=== PATIENT | female | born 1935 ===

== ENCOUNTER 2016-07-23 10:34 | Inpatient (IN) ==
[~2016-07-23 10:34] MED LIST: ATROPINE 1 MG/1 ML VIAL IV ONE; BIVALIRUDIN 250 MG VIAL IV ONE; HEPARIN/NACL 0.9% 2 UNITS/ML 500 ML IV ONE; LIDOCAINE 1% 20 ML VIAL MISC INJ ONE; MIDAZOLAM 2 MG/2 ML VIAL IV ONE; ONDANSETRON 4 MG/2 ML VIAL IV ONE; SODIUM BICARBONATE 2.4 MEQ/5 ML VIAL IV ONE; TICAGRELOR 90 MG TABLET PO ONE; fentaNYL 100 MCG/2 ML VIAL IV ONE
[2016-07-23 10:54] LABS: Basophils # 0.1 10*3/uL (0.0-0.2); Basophils % 0.6 % (0.0-0.8); Eosinophils # 0.3 10*3/uL (0.0-0.87); Eosinophils % 1.2 % (0.00-10.9); Hematocrit 39.9 VOL% (35.7-47.0); Hemoglobin 13.7 GM/DL (12.0-16.0); Immature Granulocytes % 1.1 %; Immature Granulocytes Absolute 0.24 #; Lymphocytes # 3.8 10*3/uL (1.4-4.0); Lymphocytes % 17.4 % (21.3-54.2); Mean Corpuscular HGB Conc 34.3 GM/DL (32-36); Mean Corpuscular Hemoglobin 30 PG (27-34); Monocytes # 1.6 10*3/uL (0.11-0.8); Monocytes % 7.2 % (1.7-12.7); Neutrophils # 15.8 10*3/uL (1.4-7.4); Neutrophils % 72.5 % (38.7-73.9); Platelet Count 384 T/CUMM (130-400); Red Blood Count 4.64 MC/CUMM (3.8-5.5); White Blood Count 21.8 T/CUMM (4-12)
[2016-07-23 11:05] LABS: PT Patient Result 10.4 SECS; Partial Thromboplastin Time < 21.0 SECS (0-40)
[2016-07-23 11:12] LABS: Calcium 8.9 MG/DL (8.5-10.1); Magnesium 2.2 MG/DL (1.8-2.4); Osmolality,Calculated 285.4 MOS/KG (273-304); Potassium 3.3 MMOL/L (3.5-5.1)
[2016-07-23 11:15] LABS: Hypochromasia 1+; Lymphocytes 9 % (20-55); Platelet Estimate Adequate; Segmented Neutrophils 81 % (50-85); Total Cells Counted 100
[2016-07-23] MEDS ORDERED: NITROGLYCERIN SL 0.4 MG TABLET SL PRN (11:16)
[2016-07-23] MEDS ORDERED: ACETAMINOPHEN 325 MG TABLET PO PRN (11:16)
[2016-07-23] MEDS ORDERED: ACETAMINOPHEN/CODEINE 300-30 MG TABLET PO PRN (11:16)
[2016-07-23] MEDS ORDERED: MORPHINE 2 MG/1 ML SYRINGE IV PRN (11:16)
[2016-07-23 11:19] LABS: Troponin I Only 0.062 NG/ML (0.00-0.045)
[2016-07-23] MEDS ORDERED: DILTIAZEM 100 MG VIAL.ADD IV ONE (11:43)
[2016-07-23] MEDS: DILTIAZEM INJ 100 MG in SODIUM CHLORIDE 0.9% 100 ML IV SCH (11:57)
[2016-07-23] MEDS ORDERED: ONDANSETRON 4 MG/2 ML VIAL ONE (12:16)
[2016-07-23] MEDS: ONDANSETRON 4 MG/2 ML VIAL IV PRN (12:20)
--- NOTE | 2016-07-23 12:23 | Cardiology History & Physical ---
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 Oden is a 81 year old female without a prior cardiac history, with risk factors significant for hypertension. She was in her usual state of health until she was gardening today when she experienced acute onset of left-sided shoulder pain with extreme nausea and vomiting, as well as some diarrhea. She activated EMS who recognized that she was experiencing an acute ST elevation myocardial infarction. The [facility] was activated and she was brought emergently to our [facility] for emergent evaluation and treatment. She was still experiencing left shoulder pain upon arrival, mild dyspnea. She did have some associated nausea. She underwent emergent cardiac catheterization with percutaneous coronary intervention of the right coronary artery. Please see that report for full details. Intraoperatively she experienced ventricular arrhythmias with ventricular tachycardia requiring direct-current cardioversion. Thereafter she had some bradycardia arrhythmias (which she also had pre- intervention) which responded to atropine. She was also recognized as having mid LAD disease that was severe, but had developed significant nausea and vomiting on the table making it difficult to proceed with treatment. Before the acute events today, she had recently been treated with steroids, decongestants for sinus infection. She did have some nausea, vomiting and diarrhea. She had no other acute or chronic complaints. She denied any contraindication to dual antiplatelet therapy for 1 year including no history of GI bleeding, gait instability, upcoming surgeries. Impression and plan: 1. Acute inferior ST elevation myocardial infarction-she is now status post emergent revascularization. She will be treated with dual antiplatelet therapy , statin therapy. We will evaluate her heart rhythm to determine her candidacy for beta-blockers. Currently she has been somewhat hypotensive so these are not being started. 2. Hypertension-currently hypotensive as a complication of her [place]. 3. Ventricular tachycardia-this appeared to be a reperfusion arrhythmia and resolved after cardioversion. 4. Coronary artery disease-she also has severe mid LAD disease that should be addressed prior to discharge from the hospital. 5. Bradycardia arrhythmias-this was prior to revascularization. We will observe her rhythm at this point and manage it expectantly. Home Medications Medication Instructions Recorded Confirmed Type Albuterol Sulfate [Ventolin HFA] 2 puffs INH Q4HR PRN 07/23/16 07/23/16 History Fluticasone/Salmeterol 500-50 1 puff INH BID 07/23/16 07/23/16 History [Advair 500-50] RX: Levothyroxine Tab [Synthroid 88 mcg PO DAILY 07/23/16 07/23/16 History Tab] RX: Lisinopril 5 mg PO DAILY 07/23/16 07/23/16 History hydroCHLOROthiazide 25 mg PO DAILY 07/23/16 07/23/16 History [Hydrochlorothiazide] Allergies Allergy/AdvReac Type Severity Reaction Status Date / Time No Known Allergies Allergy Unverified 07/23/16 10:33 12 point system: reviewed and no additional remarkable complaints except as stated Medical,Surgical,& Family Hx - Medical History Cardio: History of: Hypertension - Social History Smoking Status: Never smoker Lives With:: Alone Functional capacity: independent ambulation Cardiology Physical Exam - Constitutional Vitals: Intake and Output 07/22/16 07/23/16 07/23/16 23:59 07:59 15:59 Other: Weight 61.235 kg Patient Weight 07/23/16 23:59 Weight 61.235 kg Exam: General appearance: normal weight, no acute distress - Head Head exam: Present: normal inspection, normocephalic, atraumatic. Absent: hematoma, laceration - Eye Eye exam: Present: EOMI. Absent: conjunctival injection, nystagmus, periorbital swelling, scleral icterus, laceration to eyelids Pupils: Present: PERRL. Absent: constricted, dilated, fixed, irregular, unequal - ENT ENT exam: Present: normal exam, normal external ear exam - Neck Neck exam: Present: normal inspection. Absent: lymphadenopathy, meningismus, tenderness, thyromegaly - Respiratory Respiratory exam: Present: clear to auscultation bilaterally. Absent: accessory muscle use, chest wall tenderness - Cardiovascular Cardiovascular exam: Present: regular rate and rhythm. Absent: carotid bruit, gallop, JVD, rubs - GI/Abdominal GI/Abdominal exam: Present: normal bowel sounds, soft. Absent: distended, firm , guarding, hernia, mass, tenderness, rebound. - Extremities Exam Extremities exam: Present: normal inspection, normal capillary refill. Absent: calf tenderness, edema - Back Exam Back exam: Present: normal inspection. Absent: muscle spasm, vertebral tenderness - Neurological Exam Neurological exam: Present: alert, oriented X3, grossly intact without resting or intention tremor - Psychiatric Psychiatric exam: Present: normal affect, normal mood - Skin Skin exam: Present: normal color, warm, dry, intact. Absent: cyanosis, diaphoretic, rash, urticaria Result/EKG - Labs CBC & BMP: 07/23/16 10:35 07/23/16 10:35 Lab Results: I have reviewed the past 24 hour labs Labs: Laboratory Results - last 24 hr 07/23/16 07/23/16 07/23/16 10:35 10:35 10:35 WBC 21.8 H RBC 4.64 Hgb 13.7 Hct 39.9 MCV 86.0 L MCH 30 MCHC 34.3 RDW 14.0 Plt Count 384 MPV 10.0 Neut % (Auto) 72.5 Lymph % (Auto) 17.4 L [place] % (Auto) 7.2 Eos % (Auto) 1.2 Baso % (Auto) 0.6 Neut # (Auto) 15.8 H Lymph # (Auto) 3.8 [place] # (Auto) 1.6 H Eos # (Auto) 0.3 Baso # (Auto) 0.1 Total Counted 100 Immature Gran % 1.1 Nucleated RBC % 0.0 Immature Gran # 0.24 Segmented Neutrophils 81 Lymphocytes 9 L Monocytes 10 Nucleated RBCs # 0.00 Platelet Estimate Adequate Hypochromasia 1+ Morphology Comment INR 1.0 PT Patient/Control Mix 10.4 Circ Anticoag PTT < 21.0 Sodium 140 Potassium 3.3 L Chloride 106 Carbon Dioxide 22 Anion Gap 15.3 H BUN 21 H Creatinine 1.10 H GFR Calculation 43 BUN/Creatinine Ratio 19.00 Glucose 163 H Calculated Osmolality 285.4 Calcium 8.9 Magnesium 2.2 Total Creatine Kinase CK-MB (CK-2) Troponin I 07/23/16 10:35 WBC RBC Hgb Hct MCV MCH MCHC RDW Plt Count MPV Neut % (Auto) Lymph % (Auto) [place] % (Auto) Eos % (Auto) Baso % (Auto) Neut # (Auto) Lymph # (Auto) [place] # (Auto) Eos # (Auto) Baso # (Auto) Total Counted Immature Gran % Nucleated RBC % Immature Gran # Segmented Neutrophils Lymphocytes Monocytes Nucleated RBCs # Platelet Estimate Hypochromasia Morphology Comment INR PT Patient/Control Mix Circ Anticoag PTT Sodium Potassium Chloride Carbon Dioxide Anion Gap BUN Creatinine GFR Calculation BUN/Creatinine Ratio Glucose Calculated Osmolality Calcium Magnesium Total Creatine Kinase 47 CK-MB (CK-2) 1.3 Troponin I 0.062 H - EKG EKG results: interpreted by me, sinus rhythm (Sinus bradycardia with inferior and lateral ST elevation)
[2016-07-23] MEDS: SODIUM CHLORIDE 0.45% 1,000 ML IV SCH ×3 (12:30→17:29)
[2016-07-23 12:35] LABS: CKMB % 7.4 %; Troponin I Only 0.706 NG/ML (0.00-0.045)
--- NOTE | 2016-07-23 14:08 | EKG Report ---
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
[2016-07-23] MEDS ORDERED: ALUMINUM/MAGNES/SIMETH MAX STR 30 ML UDCUP PO PRN (15:22)
[2016-07-23] MEDS ORDERED: ONDANSETRON 4 MG/2 ML VIAL IV ONE (16:08)
--- NOTE | 2016-07-23 16:38 | Cardiology Operative Report ---
Date of Procedure:: 07/23/16 Pre-op diagnosis: Acute inferior ST elevation myocardial infarction. Post-op diagnosis: other (Severe two-vessel coronary artery disease, ventricular tachycardia, bradycardia arrhythmias) Procedure: 1. Selective left and right coronary angiography. 2. Left heart catheterization with left ventriculogram. 3. Right iliac angiography to rule out vascular complications. 4. Complex percutaneous intervention of the distal right coronary artery with placement of a rebel 4 x 12 mm bare-metal stent. There was also balloon angioplasty of the right posterior lateral branch with apex 2 x 12 mm balloon ( the vessel is 2 mm or less in caliber) 5. Direct-current cardioversion for intraoperative ventricular tachycardia. 6. Placement of right femoral venous sheath for possible temporary pacemaker placement. Impression: 1. Severe two-vessel coronary artery disease. Acute NM complicated by ventricular and bradycardia arrhythmias, as well as hypotension. A. Distal right coronary artery is 100% stenosis. B. Right posterior lateral branch with sequential 80% stenosis. C. Mid LAD with 90% angiographic stenosis involving the ostium of the second diagonal artery, with a sequential 70% stenosis. 2. Right dominant coronary arteries. 3. Ejection fraction 55 %. 4. Angiographically normal right iliac artery without evidence of vascular complications. 5. Successful PCI of the right coronary artery as described above. Plan: 1. DAPT > 1-2 months. 2. Staged PCI of mid LAD. Equipment: Diagnostic 6 Israeli JL4, pigtail catheters Guiding 6 Israeli JR4 and EBU 3.5 catheters, pro-water 300 cm wire, apex 2 x 12 mm balloon, rebel 4 x 12 mm bare-metal stent Hemodynamics: Aortic pressure 114/46 mmHg, left ventricular pressure 116/26 mmHg, LVEDP 18 mmHg Sedation: Fentanyl 25 mcg Procedure: After informed consent was emergently obtained the patient was prepped and draped in sterile fashion. The right groin was infiltrated with 1% lidocaine and the right femoral vein and artery were accessed via modified Seldinger technique using a micropuncture needle and 6 Israeli femoral venous and arterial arterial sheaths were placed. The venous sheath was placed prophylactically in case the patient were to require an emergent temporary pacemaker due to her bradycardia and ongoing inferior myocardial infarction. All catheter exchanges were performed over a guidewire under fluoroscopic guidance. Diagnostic 6 Israeli JL4 and guiding 6 Israeli JR4 catheters were advanced to the left and right coronary arteries respectively and multiple cineangiograms were performed in varying degrees of obliquity and angulation. Percutaneous intevention of the right coronary artery and right posterior lateral artery were then performed as described below. Immediately after flow was restored into the coronary artery, the patient developed ventricular tachycardia and required cardioversion. Prior to this she had been bradycardic, and she had recurrent bradycardia arrhythmias after cardioversion. She was administered atropine 0.5 mg with resolution of the bradycardia arrhythmias. Thereafter a pigtail catheter was advanced into the left ventricle where hemodynamics were obtained followed by left ventriculogram. A guiding 6 Israeli EBU 3.5 catheter was advanced to the left main artery for consideration of PCI in the LAD (given the RANJIT II flow). However, the patient was very nauseated and vomiting, and there seemed to be improved flow upon follow-up angiography, therefore PCI of this lesion was postponed. At conclusion of the procedure right iliac angiography was performed to rule out vascular complications. Findings: 1. The left main artery is angiographically normal. 2. The left anterior descending artery extends to the apex and wraps around. There is 90% stenosis in the mid segment involving the ostium of the second diagonal artery with some prestenotic dilatation of the vessel. There is a sequential 70% lesion in the mid segment. Initially there seemed to be RANJIT II flow which postoperatively appeared to be RANJIT-3 flow. 3. There is an intermediate ramus branch that is moderate in caliber, tortuous , and free of significant disease. 4. The circumflex artery is a nondominant vessel that gives rise to 2 branching marginal arteries. There are luminal irregularities throughout the system with up to 30% stenosis, but no significant stenosis. 5. The right coronary artery is 100% occluded in the distal segment. After flow was restored, the right posterior lateral branch was noted to have sequential 80% stenosis (vessel less than or equal to 2 mm). The right coronary artery is dominant. 6. Ejection fraction is 55 % with hypokinesis of the basal to mid inferior wall. 7. Mild mitral regurgitation. 8. No significant aortic stenosis. 9. The right iliac artery is angiographically normal without evidence of vascular complications. PCI: The patient was anticoagulated with Angiomax. After appropriate anticoagulation was confirmed with an ACT measurement, a guiding 6 Israeli JR4 catheter was advanced to the right coronary artery. A pro-water 300 cm wire was used to traverse the right coronary artery. A apex over the wire 2 x 12 mm balloon was advanced to the site of stenosis and angioplasty was performed at 14 ashish. Thereafter, a rebel 4 x 12 mm stent was advanced to the site of angioplasty, and successfully deployed at 11 ashish. Follow-up angiography revealed sequential stenosis in the posterior lateral branch there were each approximately 80%. The vessel itself was less than or equal to 2 mm in caliber. The apex over the wire 2 x 12 mm balloon was advanced to the site of the stenosis and angioplasty was performed in the more distal lesion at 14 ashish, and 12 ashish in the more proximal lesion. Satisfactory angiographic result was obtained at all treated sites with appropriate step-up proximally and distally in the stented segment, and no evidence of residual vascular complications. Preoperatively there is 100% stenosis with RANJIT 0 flow in the distal right coronary artery. Postoperatively there is 0% residual stenosis with RANJIT-3 flow. Contrast use: Omnipaque 164 cc Fluoro time: 4.0 minutes Complications: Ventricular arrhythmias and bradycardia arrhythmias as described above Specimens removed: none Devices implanted: stent as described above Anesthesia: moderate conscious sedation Surgeon / Physician: Luci Ceja Hot Metal Mixer Operator Helper: none (Benitez Hernadez) Estimated blood loss: minimal Specimens: none sent Condition: critical Disposition: ICU/CCU
[2016-07-23] MEDS ORDERED: ALBUTEROL 2.5 MG/3 ML NEB RESP TX PRN (19:00)
[2016-07-23 20:01] LABS: CKMB % 15.9 %
[2016-07-23] MEDS ORDERED: DILTIAZEM 50 MG/10 ML VIAL IV ONE (20:26)
[2016-07-23] MEDS ORDERED: METOPROLOL TARTRATE 5 MG/5 ML VIAL IV ONE (20:30)
[2016-07-23] MEDS: TICAGRELOR 90 MG TABLET PO SCH (20:50)
[2016-07-23] MEDS: FLUTICASONE/SALMETEROL 500-50 DISKUS 14 DOSE INH SCH (20:50)
[2016-07-24] MEDS: SODIUM CHLORIDE 0.45% 1,000 ML IV SCH ×3 (04:00→16:34)
[2016-07-24] MEDS: ONDANSETRON 4 MG/2 ML VIAL IV PRN (05:20)
[2016-07-24] MEDS: ENOXAPARIN 40 MG/0.4 ML SYRINGE SUBCUT SCH (05:20)
--- NOTE | 2016-07-24 06:09 | EKG Report ---
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
[2016-07-24 06:39] LABS: Basophils # 0.1 10*3/uL (0.0-0.2); Basophils % 0.5 % (0.0-0.8); Eosinophils # 0.2 10*3/uL (0.0-0.87); Eosinophils % 1.8 % (0.00-10.9); Hematocrit 36.9 VOL% (35.7-47.0); Hemoglobin 12.4 GM/DL (12.0-16.0); Immature Granulocytes % 0.6 %; Immature Granulocytes Absolute 0.08 #; Lymphocytes # 1.8 10*3/uL (1.4-4.0); Lymphocytes % 14.6 % (21.3-54.2); Mean Corpuscular HGB Conc 33.6 GM/DL (32-36); Mean Corpuscular Hemoglobin 29 PG (27-34); Mean Corpuscular Volume 86.2 FL (87-102); Mean Platelet Volume 10.1 FL (9.6-12.0); Monocytes # 0.9 10*3/uL (0.11-0.8); Monocytes % 7.3 % (1.7-12.7); Neutrophils # 9.5 10*3/uL (1.4-7.4); Neutrophils % 75.2 % (38.7-73.9); Platelet Count 285 T/CUMM (130-400); Red Blood Count 4.28 MC/CUMM (3.8-5.5); Red Cell Distribution Width 14.1 % (9.3-17.3); White Blood Count 12.6 T/CUMM (4-12)
--- NOTE | 2016-07-24 06:57 | Cardiology Progress Note ---
<Olinda Torres E - Last Filed: 07/24/16 07:36> Assessment and Plan - Time spent with patient Time spent with patient: Greater than 30 minutes (1) STEMI (ST elevation myocardial infarction) Status: Resolved Assessment and plan: SEE PLAN OF CARE LISTED BELOW Current Visit: Yes (2) Dyslipidemia Status: Chronic Assessment and plan: SEE PLAN OF CARE LISTED BELOW Current Visit: Yes (3) Advanced age Status: Chronic Assessment and plan: SEE PLAN OF CARE LISTED BELOW Current Visit: Yes (4) Bradycardia Status: Acute Assessment and plan: SEE PLAN OF CARE LISTED BELOW Current Visit: Yes (5) Coronary artery disease Status: Chronic Assessment and plan: SEE PLAN OF CARE LISTED BELOW Current Visit: Yes (6) Ventricular tachycardia Status: Acute Assessment and plan: SEE PLAN OF CARE LISTED BELOW Current Visit: Yes Cardiology - PN: Subj Interval history: HEAVY 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 CEJA Patient is being seen in the CCU. SUMMARY: Ms. Oden, [id number], arrived to the Emergency Department July 23, 2016 with acute inferior STEMI. She was taken emergently to the cardiac catheterization lab where Dr. Luci Ceja performed emergent heart catheterization. She underwent PCI of the right coronary artery (see cardiac catheterization report for additional information). Intraoperatively, she experienced ventricular arrhythmias with ventricular tachycardia requiring DCCV. Thereafter, she had bradycardia arrhythmias which she also had pre- intervention. This responded to atropine. During the procedure, she was recognized as having mid LAD disease that was severe. She developed significant nausea and vomiting making it difficult to proceed with treatment of the LAD. She will undergo staged procedure of the LAD prior to discharge. JULY 25, 2016: This morning, patient is doing well without chest pain, heaviness or tightness. She does have some mild nausea but in general is feeling much better. Right groin is soft, free of hematoma or bruit. She continues to have bradycardia with heart rate in the 50s and 60s. No ventricular arrhythmias and this is suspected to be reperfusion rhythm after revascularization. Blood pressure is stable and she continues to take aspirin, Brilinta. Diltiazem IV has been discontinued. At this time, she is unable to tolerate a beta-gee or LAURA inhibitor. Adding lipid-lowering agent. Fasting lipid profile, troponin pending. Echocardiogram results pending ASSESSMENT/PLAN: 1. ACUTE, INFERIOR STEMI - now status post emergent revascularization. She will be treated with dual antiplatelet therapy, statin . We will evaluate her heart rhythm to determine her candidacy for beta-blockers. Currently she has been somewhat hypotensive so these are not being started. 2. HYPERTENSION - history, at this time, she cannot tolerate introduction of an antihypertensive. 3. VENTRICULAR TACHYCARDIA - this appeared to be a reperfusion arrhythmia and resolved after cardioversion. 4. CORONARY ARTERY DISEASE - she also has severe mid LAD disease that should be addressed prior to discharge from the hospital. 5. CINTHIA ARRYTHMIAS - this was prior to revascularization. We will observe her rhythm at this point and manage it expectantly. 6. DYSLIPIDEMIA - starting lipid lowering agent 7. ADVANCED AGE - continue current plan of care. Cardiac catheterization impression: 1. Severe two-vessel coronary artery disease. Acute PA complicated by ventricular and bradycardia arrhythmias, as well as hypotension. A. Distal right coronary artery is 100% stenosis. B. Right posterior lateral branch with sequential 80% stenosis. C. Mid LAD with 90% angiographic stenosis involving the ostium of the second diagonal artery, with a sequential 70% stenosis. 2. Right dominant coronary arteries. 3. Ejection fraction 55 %. 4. Angiographically normal right iliac artery without evidence of vascular complications. 5. Successful PCI of the right coronary artery as described above. Exam (Progress Note) - Constitutional Vitals: Period Temp Pulse Resp BP Sys/Méndez Pulse Ox Last 24 Hr 96.6 F-98.8 F 47-95 13-47 92-151/49-96 91-97 Exam: General: [Appears well with no apparent distress.] [Pleasant and cooperative. ] [Appears comfortable.] HEENT: [PERRL, normocephalic, atraumatic. Mucous membranes moist. No jaundice noted. Conjunctiva moist and clear, sclerae anicteric] Neck: No JVD/HJR, no thyromegaly or lymphadenopathy noted. No carotid bruit appreciated Cardiac: [Slow rate, regular rhythm] [No murmur, rub or gallop.] Lungs: [Clear to auscultation without accessory muscle use to assist the respiratory pattern.] Not requiring oxygen Abdomen: Soft, bowel sounds normoactive. Nontender and nondistended. No abdominal bruit or thrill noted. No masses noted. Musculoskeletal: No fluid collection. Decreased range of motion is noted. Extremities: Right groin soft free of hematoma or bruit. No clubbing, cyanosis noted. [ No edema noted.] Upper extremity pulses 2+. Lower extremity pulses 2+ . Capillary refill less than 3 seconds. Skin: No unusual lesions or rashes. No skin breakdown appreciated. Neuro: Awake, alert and oriented 3. Moves all extremities well without hemiparesis or paralysis. No essential tremor is appreciated. Result/EKG - Labs CBC & BMP: 07/24/16 04:45 07/24/16 04:45 Lab Results: I have reviewed the past 24 hour labs Labs: Laboratory Results - last 24 hr 07/23/16 07/23/16 07/23/16 10:35 10:35 10:35 WBC 21.8 H RBC 4.64 Hgb 13.7 Hct 39.9 MCV 86.0 L MCH 30 MCHC 34.3 RDW 14.0 Plt Count 384 MPV 10.0 Neut % (Auto) 72.5 Lymph % (Auto) 17.4 L [place] % (Auto) 7.2 Eos % (Auto) 1.2 Baso % (Auto) 0.6 Neut # (Auto) 15.8 H Lymph # (Auto) 3.8 [place] # (Auto) 1.6 H Eos # (Auto) 0.3 Baso # (Auto) 0.1 Total Counted 100 Immature Gran % 1.1 Nucleated RBC % 0.0 Immature Gran # 0.24 Segmented Neutrophils 81 Lymphocytes 9 L Monocytes 10 Nucleated RBCs # 0.00 Platelet Estimate Adequate Hypochromasia 1+ Morphology Comment INR 1.0 PT Patient/Control Mix 10.4 Circ Anticoag PTT < 21.0 Sodium 140 Potassium 3.3 L Chloride 106 Carbon Dioxide 22 Anion Gap 15.3 H BUN 21 H Creatinine 1.10 H GFR Calculation 43 BUN/Creatinine Ratio 19.00 Glucose 163 H Calculated Osmolality 285.4 Calcium 8.9 Magnesium 2.2 Total Creatine Kinase CK-MB (CK-2) CK and CKMB Interp Troponin I 07/23/16 07/23/16 07/23/16 10:35 11:54 19:33 WBC RBC Hgb Hct MCV MCH MCHC RDW Plt Count MPV Neut % (Auto) Lymph % (Auto) [place] % (Auto) Eos % (Auto) Baso % (Auto) Neut # (Auto) Lymph # (Auto) [place] # (Auto) Eos # (Auto) Baso # (Auto) Total Counted Immature Gran % Nucleated RBC % Immature Gran # Segmented Neutrophils Lymphocytes Monocytes Nucleated RBCs # Platelet Estimate Hypochromasia Morphology Comment INR PT Patient/Control Mix Circ Anticoag PTT Sodium Potassium Chloride Carbon Dioxide Anion Gap BUN Creatinine GFR Calculation BUN/Creatinine Ratio Glucose Calculated Osmolality Calcium Magnesium Total Creatine Kinase 47 74 D 352 H D CK-MB (CK-2) 1.3 5.5 H 55.8 H D CK and CKMB Interp 7.4 15.9 Troponin I 0.062 H 0.706 H D 19.000 H D 07/24/16 04:45 WBC 12.6 H D RBC 4.28 Hgb 12.4 Hct 36.9 MCV 86.2 L MCH 29 MCHC 33.6 RDW 14.1 Plt Count 285 D MPV 10.1 Neut % (Auto) 75.2 H Lymph % (Auto) 14.6 L [place] % (Auto) 7.3 Eos % (Auto) 1.8 Baso % (Auto) 0.5 Neut # (Auto) 9.5 H Lymph # (Auto) 1.8 [place] # (Auto) 0.9 H Eos # (Auto) 0.2 Baso # (Auto) 0.1 Total Counted Immature Gran % 0.6 Nucleated RBC % 0.0 Immature Gran # 0.08 Segmented Neutrophils Lymphocytes Monocytes Nucleated RBCs # 0.00 Platelet Estimate Hypochromasia Morphology Comment INR PT Patient/Control Mix Circ Anticoag PTT Sodium Potassium Chloride Carbon Dioxide Anion Gap BUN Creatinine GFR Calculation BUN/Creatinine Ratio Glucose Calculated Osmolality Calcium Magnesium Total Creatine Kinase CK-MB (CK-2) CK and CKMB Interp Troponin I - Diagnostic Findings Procedure: Chest x-ray: report reviewed by me - EKG EKG results: interpreted by nm EKG shows: bradycardia, sinus rhythm Specialty Discharge - Follow Up or Referrals <Luci Ceja - Last Filed: 07/24/16 20:17> Assessment and Plan (1) AMI inferior wall Status: Acute Current Visit: Yes (2) Coronary artery disease Status: Chronic Current Visit: Yes (3) Hypertension Status: Chronic Current Visit: Yes (4) Ventricular tachycardia Status: Acute Current Visit: Yes (5) Bradycardia Status: Acute Current Visit: Yes (6) Hypotension Status: Acute Current Visit: Yes Cardiology - PN: Subj Interval history: Olinda agree. The patient is doing well and we will transfer her to the floor. Exam (Progress Note) - Constitutional Vitals: Period Temp Pulse Resp BP Sys/Méndez Pulse Ox Last 24 Hr 97.6 F-98.7 F 47-101 12-47 92-146/50-93 91-97 Result/EKG - Labs CBC & BMP: 07/24/16 04:45 07/24/16 04:45 Labs: Laboratory Results - last 24 hr 07/24/16 07/24/16 07/24/16 04:45 04:45 04:45 WBC 12.6 H D RBC 4.28 Hgb 12.4 Hct 36.9 MCV 86.2 L MCH 29 MCHC 33.6 RDW 14.1 Plt Count 285 D MPV 10.1 Neut % (Auto) 75.2 H Lymph % (Auto) 14.6 L [place] % (Auto) 7.3 Eos % (Auto) 1.8 Baso % (Auto) 0.5 Neut # (Auto) 9.5 H Lymph # (Auto) 1.8 [place] # (Auto) 0.9 H Eos # (Auto) 0.2 Baso # (Auto) 0.1 Immature Gran % 0.6 Nucleated RBC % 0.0 Immature Gran # 0.08 Nucleated RBCs # 0.00 Sodium 136 Potassium 4.1 Chloride 102 Carbon Dioxide 23 Anion Gap 15.1 H BUN 14 Creatinine 1.10 H GFR Calculation 44 BUN/Creatinine Ratio 12.00 Glucose 80 Calculated Osmolality 271.0 L Calcium 8.6 Magnesium Total Creatine Kinase 430 H D CK-MB (CK-2) 61.9 H D CK and CKMB Interp 14.4 Troponin I 23.900 H D Triglycerides 140 Cholesterol 173 LDL Cholesterol 105.0 VLDL Cholesterol 28.0 HDL Cholesterol 51 Heart Disease Risk Ratio 3.39 Free T4 TSH 3rd Generation 07/24/16 07/24/16 07/24/16 04:45 04:45 15:40 WBC RBC Hgb Hct MCV MCH MCHC RDW Plt Count MPV Neut % (Auto) Lymph % (Auto) [place] % (Auto) Eos % (Auto) Baso % (Auto) Neut # (Auto) Lymph # (Auto) [place] # (Auto) Eos # (Auto) Baso # (Auto) Immature Gran % Nucleated RBC % Immature Gran # Nucleated RBCs # Sodium Potassium Chloride Carbon Dioxide Anion Gap BUN Creatinine GFR Calculation BUN/Creatinine Ratio Glucose Calculated Osmolality Calcium Magnesium 2.4 Total Creatine Kinase 263 H D CK-MB (CK-2) 27.8 H D CK and CKMB Interp 10.6 Troponin I 15.400 H D Triglycerides Cholesterol LDL Cholesterol VLDL Cholesterol HDL Cholesterol Heart Disease Risk Ratio Free T4 1.05 TSH 3rd Generation 6.240 H
[2016-07-24 07:10] LABS: CKMB % 14.4 %
[2016-07-24 07:14] LABS: Calcium 8.6 MG/DL (8.5-10.1); Potassium 4.1 MMOL/L (3.5-5.1); Risk Ratio 3.39
[2016-07-24 07:28] LABS: Troponin I Only 23.9 NG/ML (0.00-0.045)
[2016-07-24 08:04] LABS: Free T4 (Free Thyroxine) 1.05 NG/DL (0.76-1.46); Thyroid Stimulating Hormone 6.24 uIU/ml (0.358-3.74)
[2016-07-24] MEDS: FLUTICASONE/SALMETEROL 500-50 DISKUS 14 DOSE INH SCH ×2 (09:11→20:04)
[2016-07-24] MEDS: TICAGRELOR 90 MG TABLET PO SCH ×2 (09:12→20:03)
[2016-07-24] MEDS: POTASSIUM CHLORIDE 20 MEQ TABLET PO SCH (09:12)
[2016-07-24] MEDS: LEVOTHYROXINE 88 MCG TABLET PO SCH (09:12)
[2016-07-24] MEDS: ASPIRIN EC 81 MG TABLET PO SCH (09:12)
[2016-07-24] MEDS: DILTIAZEM INJ 100 MG in SODIUM CHLORIDE 0.9% 100 ML IV SCH (12:24)
[2016-07-24 16:17] LABS: CKMB % 10.6 %
[2016-07-24 16:19] LABS: Troponin I Only 15.4 NG/ML (0.00-0.045)
--- NOTE | 2016-07-24 17:41 | ECHO Report ---
Nancy Oden Exam Date: 07/23/2016 16:53 Referring Physician: Technologist: Shell Roberts Age: 81 Ht (in): 62 Wt (lb): 135 Gender: F Exam Location: [facility] Echo Indications: CAD, HTN, hypotension, bradycardia, ventricular tachycardia, AMI BP: 128 / 60 HR: 82 Rhythm: Sinus Technical Quality: Poor IMPRESSIONS Normal LV systolic function, ejection fraction 50-55%. Regional wall motion cannot be well assessed. Grade 1/4 diastolic dysfunction. Mild to moderate concentric left ventricular hypertrophy. Mild mitral regurgitation. MEASUREMENTS (Male / Female) Normal Values 2D ECHO LV Diastolic Diameter PLAX 3.4 cm 4.2 - 5.9 / 3.9 - 5.3 cm LV Systolic Diameter PLAX 2.1 cm LV Fractional Shortening PLAX 38.3 % IVS Diastolic Thickness 1.7 cm 0.6 - 1.0 / 0.6 - 0.9 cm LVPW Diastolic Thickness 1.2 cm 0.6 - 1.0 / 0.6 - 0.9 cm RV Internal Dim ED PLAX 2.1 cm Aortic Root Diameter 2.4 cm LA Systolic Diameter LX 3.5 cm 3.0 - 4.0 / 2.7 - 3.8 cm FINDINGS Left Ventricle Mild to moderate concentric left ventricular hypertrophy with diastolic dysfunction. Left ventricular ejection fraction is estimated at 50-55 %. Grade 1/4 diastolic dysfunction. There is very poor endocardial resolution which prevents regional wall motion assessment. Right Ventricle Normal right ventricular size. Right Atrium Normal right atrial size. Left Atrium Normal left atrial size. Mitral Valve Mild mitral valve sclerosis. Mild mitral valve regurgitation. Aortic Valve Mild aortic valve sclerosis without stenosis or regurgitation. Tricuspid Valve Morphologically normal tricuspid valve. Pulmonic Valve Morphologically normal pulmonic valve. Pericardium No pericardial effusion. Aorta Normal size aortic root and proximal ascending aorta. Luci Ceja MD (Electronically Signed) Final Date: 24 Jul 2016 17:40
[2016-07-25] MEDS: ENOXAPARIN 40 MG/0.4 ML SYRINGE SUBCUT SCH (05:34)
[2016-07-25 05:55] LABS: Basophils # 0.1 10*3/uL (0.0-0.2); Basophils % 0.6 % (0.0-0.8); Eosinophils # 0.3 10*3/uL (0.0-0.87); Eosinophils % 3.4 % (0.00-10.9); Hemoglobin 13.2 GM/DL (12.0-16.0); Immature Granulocytes % 0.6 %; Immature Granulocytes Absolute 0.05 #; Lymphocytes # 1.6 10*3/uL (1.4-4.0); Mean Corpuscular Hemoglobin 28 PG (27-34); Mean Corpuscular Volume 85.8 FL (87-102); Monocytes # 0.7 10*3/uL (0.11-0.8); Monocytes % 8.6 % (1.7-12.7); Neutrophils # 5.8 10*3/uL (1.4-7.4); Neutrophils % 67.8 % (38.7-73.9); Platelet Count 273 T/CUMM (130-400); Red Blood Count 4.66 MC/CUMM (3.8-5.5); Red Cell Distribution Width 14.3 % (9.3-17.3); White Blood Count 8.6 T/CUMM (4-12)
[2016-07-25 06:17] LABS: Calcium 9.4 MG/DL (8.5-10.1); Potassium 4.1 MMOL/L (3.5-5.1)
[2016-07-25 06:19] LABS: Calcium 9.4 MG/DL (8.5-10.1); Magnesium 2.2 MG/DL (1.8-2.4); Osmolality,Calculated 281.3 MOS/KG (273-304); Potassium 4.1 MMOL/L (3.5-5.1)
[2016-07-25] MEDS: POTASSIUM CHLORIDE 20 MEQ TABLET PO SCH (08:46)
[2016-07-25] MEDS: TICAGRELOR 90 MG TABLET PO SCH ×2 (08:46→20:57)
[2016-07-25] MEDS: ASPIRIN EC 81 MG TABLET PO SCH (08:46)
[2016-07-25] MEDS: LEVOTHYROXINE 88 MCG TABLET PO SCH (08:46)
[2016-07-25] MEDS: FLUTICASONE/SALMETEROL 500-50 DISKUS 14 DOSE INH SCH ×2 (08:46→20:57)
--- NOTE | 2016-07-25 17:48 | Cardiology Progress Note ---
Assessment and Plan (1) AMI inferior wall Status: Acute Current Visit: Yes (2) Coronary artery disease Status: Chronic Current Visit: Yes (3) Hypertension Status: Chronic Current Visit: Yes (4) Ventricular tachycardia Status: Acute Current Visit: Yes (5) Bradycardia Status: Acute Current Visit: Yes (6) Hypotension Status: Acute Current Visit: Yes Cardiology - PN: Subj Interval history: NOTE TAKER: DR. HURST SUMMARY: Ms. Oden, [id number], arrived to the Emergency Department July 23, 2016 with acute inferior STEMI. Left heart catheterization revealed severe mid LAD stenosis and 100% occlusion of the right coronary artery, for which she underwent PCI of the right coronary artery (see cardiac catheterization report for additional information). Intraoperatively, she experienced ventricular arrhythmias with ventricular tachycardia requiring DCCV. Thereafter, she had bradycardia arrhythmias which she also had pre-intervention. This responded to atropine. She developed significant nausea and vomiting making it difficult to proceed with treatment of the LAD. She will undergo staged procedure of the LAD prior to discharge. JULY 25, 2016: This morning, patient is doing well without chest pain, heaviness or tightness. She denies any complaints. ASSESSMENT/PLAN: 1. ACUTE, INFERIOR STEMI - now status post emergent revascularization. She will be treated with dual antiplatelet therapy, statin . 2. HYPERTENSION -we will reintroduce her medications as her hemodynamics permit. 3. VENTRICULAR TACHYCARDIA - this appeared to be a reperfusion arrhythmia and resolved after cardioversion. 4. CORONARY ARTERY DISEASE - she also has severe mid LAD disease that should be addressed prior to discharge from the hospital. 5. CINTHIA ARRYTHMIAS - this was prior to revascularization. We will observe her rhythm at this point and manage it expectantly. 6. DYSLIPIDEMIA - starting lipid lowering agent 7. ADVANCED AGE - continue current plan of care. Exam (Progress Note) - Constitutional Vitals: Period Temp Pulse Resp BP Sys/Méndez Pulse Ox Last 24 Hr 97.8 F-98.5 F 70-101 15-21 125-176/67-98 92-96 Exam: General appearance: normal weight, no acute distress - Head Head exam: Present: normal inspection, normocephalic, atraumatic. Absent: hematoma, laceration - Eye Eye exam: Present: EOMI. Absent: conjunctival injection, nystagmus, periorbital swelling, scleral icterus, laceration to eyelids Pupils: Present: PERRL. Absent: constricted, dilated, fixed, irregular, unequal - ENT ENT exam: Present: normal exam, normal external ear exam - Neck Neck exam: Present: normal inspection. Absent: lymphadenopathy, meningismus, tenderness, thyromegaly - Respiratory Respiratory exam: Present: clear to auscultation bilaterally. Absent: accessory muscle use, chest wall tenderness - Cardiovascular Cardiovascular exam: Present: regular rate and rhythm. Absent: carotid bruit, gallop, JVD, rubs - GI/Abdominal GI/Abdominal exam: Present: normal bowel sounds, soft. Absent: distended, firm , guarding, hernia, mass, tenderness, rebound. - Extremities Exam Extremities exam: Present: normal inspection, normal capillary refill. Absent: calf tenderness, edema - Back Exam Back exam: Present: normal inspection. Absent: muscle spasm, vertebral tenderness - Neurological Exam Neurological exam: Present: alert, oriented X3, grossly intact without resting or intention tremor - Psychiatric Psychiatric exam: Present: normal affect, normal mood - Skin Skin exam: Present: normal color, warm, dry, intact. Absent: cyanosis, diaphoretic, rash, urticaria right groin is without hematoma or bruit, right femoral and posterior tibialis pulses are 2+. Result/EKG - Labs CBC & BMP: 07/25/16 05:15 07/25/16 05:16 Lab Results: I have reviewed the past 24 hour labs Labs: Laboratory Results - last 24 hr 07/25/16 07/25/16 07/25/16 05:15 05:15 05:16 WBC 8.6 D RBC 4.66 Hgb 13.2 Hct 40.0 MCV 85.8 L MCH 28 MCHC 33.0 RDW 14.3 Plt Count 273 MPV 10.0 Neut % (Auto) 67.8 Lymph % (Auto) 19.0 L [place] % (Auto) 8.6 Eos % (Auto) 3.4 Baso % (Auto) 0.6 Neut # (Auto) 5.8 Lymph # (Auto) 1.6 [place] # (Auto) 0.7 Eos # (Auto) 0.3 Baso # (Auto) 0.1 Immature Gran % 0.6 Nucleated RBC % 0.0 Immature Gran # 0.05 Nucleated RBCs # 0.00 Sodium 141 143 Potassium 4.1 4.1 Chloride 107 108 H Carbon Dioxide 23 23 Anion Gap 15.1 H 16.1 H BUN 15 15 Creatinine 1.10 H 1.10 H GFR Calculation 44 44 BUN/Creatinine Ratio 13.00 13.00 Glucose 91 91 Calculated Osmolality 281.3 285.0 Calcium 9.4 9.4 Magnesium 2.2 Specialty Discharge - Follow Up or Referrals
[2016-07-25] MEDS: CETIRIZINE 5 MG TABLET PO SCH (20:57)
[2016-07-25] MEDS: CARVEDILOL 6.25 MG TABLET PO SCH (20:58)
[2016-07-26] MEDS: ZALEPLON 5 MG CAPSULE PO PRN (00:16)
[2016-07-26 04:14] LABS: Basophils # 0.1 10*3/uL (0.0-0.2); Basophils % 0.8 % (0.0-0.8); Eosinophils # 0.6 10*3/uL (0.0-0.87); Eosinophils % 5.4 % (0.00-10.9); Hematocrit 39.4 VOL% (35.7-47.0); Immature Granulocytes % 0.6 %; Immature Granulocytes Absolute 0.06 #; Lymphocytes # 1.6 10*3/uL (1.4-4.0); Lymphocytes % 15.1 % (21.3-54.2); Mean Corpuscular Hemoglobin 29 PG (27-34); Mean Corpuscular Volume 86.6 FL (87-102); Mean Platelet Volume 10.1 FL (9.6-12.0); Monocytes # 0.8 10*3/uL (0.11-0.8); Monocytes % 7.5 % (1.7-12.7); Neutrophils # 7.2 10*3/uL (1.4-7.4); Neutrophils % 70.6 % (38.7-73.9); Platelet Count 283 T/CUMM (130-400); Red Blood Count 4.55 MC/CUMM (3.8-5.5); Red Cell Distribution Width 14.2 % (9.3-17.3); White Blood Count 10.2 T/CUMM (4-12)
[2016-07-26 04:37] LABS: Osmolality,Calculated 280.4 MOS/KG (273-304); Potassium 4.3 MMOL/L (3.5-5.1)
[2016-07-26] MEDS: CETIRIZINE 5 MG TABLET PO SCH (08:37)
[2016-07-26] MEDS: ASPIRIN EC 81 MG TABLET PO SCH (08:37)
[2016-07-26] MEDS: LEVOTHYROXINE 88 MCG TABLET PO SCH (08:37)
[2016-07-26] MEDS: CARVEDILOL 6.25 MG TABLET PO SCH ×2 (08:38→21:49)
[2016-07-26] MEDS: POTASSIUM CHLORIDE 20 MEQ TABLET PO SCH (08:38)
[2016-07-26] MEDS: TICAGRELOR 90 MG TABLET PO SCH ×2 (08:38→21:49)
[2016-07-26] MEDS: ENOXAPARIN 40 MG/0.4 ML SYRINGE SUBCUT SCH (08:38)
[2016-07-26] MEDS: FLUTICASONE/SALMETEROL 500-50 DISKUS 14 DOSE INH SCH ×2 (08:38→21:49)
--- NOTE | 2016-07-26 12:33 | Cardiology Progress Note ---
Assessment and Plan (1) AMI inferior wall Status: Acute Current Visit: Yes (2) Coronary artery disease Status: Chronic Current Visit: Yes (3) Hypertension Status: Chronic Current Visit: Yes (4) Ventricular tachycardia Status: Acute Current Visit: Yes (5) Bradycardia Status: Acute Current Visit: Yes (6) Hypotension Status: Acute Current Visit: Yes Cardiology - PN: Subj Interval history: RENEWAL SPECIALIST: DR. HURST SUMMARY: Ms. Oden, [id number], arrived to the Emergency Department July 23, 2016 with acute inferior STEMI. Left heart catheterization revealed severe mid LAD stenosis and 100% occlusion of the right coronary artery, for which she underwent PCI of the right coronary artery (see cardiac catheterization report for additional information). Intraoperatively, she experienced ventricular arrhythmias with ventricular tachycardia requiring DCCV. Thereafter, she had bradycardia arrhythmias which she also had pre-intervention. This responded to atropine. She developed significant nausea and vomiting making it difficult to proceed with treatment of the LAD. She will undergo staged procedure of the LAD prior to discharge. JULY 25, 2016: This morning, patient is doing well without chest pain, heaviness or tightness. She denies any complaints. July 18, 2016: Continues to do well without any postinfarct angina. Denies shortness of breath, groin complaints. Hemodynamics optimized. ASSESSMENT/PLAN: 1. ACUTE, INFERIOR STEMI - now status post emergent revascularization. She will be treated with dual antiplatelet therapy, statin . 2. HYPERTENSION -we will reintroduce her medications as her hemodynamics permit. 3. VENTRICULAR TACHYCARDIA - this appeared to be a reperfusion arrhythmia and resolved after cardioversion. 4. CORONARY ARTERY DISEASE - she also has severe mid LAD disease that should be addressed prior to discharge from the hospital. 5. CINTHIA ARRYTHMIAS - this was prior to revascularization. We will observe her rhythm at this point and manage it expectantly. 6. DYSLIPIDEMIA - starting lipid lowering agent 7. ADVANCED AGE - continue current plan of care. Exam (Progress Note) - Constitutional Vitals: Period Temp Pulse Resp BP Sys/Méndez Pulse Ox Last 24 Hr 97.4 F-98.5 F 63-84 18-23 119-143/66-76 92-97 Exam: General appearance: normal weight, no acute distress - Head Head exam: Present: normal inspection, normocephalic, atraumatic. Absent: hematoma, laceration - Eye Eye exam: Present: EOMI. Absent: conjunctival injection, nystagmus, periorbital swelling, scleral icterus, laceration to eyelids Pupils: Present: PERRL. Absent: constricted, dilated, fixed, irregular, unequal - ENT ENT exam: Present: normal exam, normal external ear exam - Neck Neck exam: Present: normal inspection. Absent: lymphadenopathy, meningismus, tenderness, thyromegaly - Respiratory Respiratory exam: Present: clear to auscultation bilaterally. Absent: accessory muscle use, chest wall tenderness - Cardiovascular Cardiovascular exam: Present: regular rate and rhythm. Absent: carotid bruit, gallop, JVD, rubs - GI/Abdominal GI/Abdominal exam: Present: normal bowel sounds, soft. Absent: distended, firm , guarding, hernia, mass, tenderness, rebound. - Extremities Exam Extremities exam: Present: normal inspection, normal capillary refill. Absent: calf tenderness, edema - Back Exam Back exam: Present: normal inspection. Absent: muscle spasm, vertebral tenderness - Neurological Exam Neurological exam: Present: alert, oriented X3, grossly intact without resting or intention tremor - Psychiatric Psychiatric exam: Present: normal affect, normal mood - Skin Skin exam: Present: normal color, warm, dry, intact. Absent: cyanosis, diaphoretic, rash, urticaria right groin is without hematoma or bruit, right femoral and posterior tibialis pulses are 2+. Result/EKG - Labs CBC & BMP: 07/26/16 03:16 07/26/16 03:16 Lab Results: I have reviewed the past 24 hour labs Labs: Laboratory Results - last 24 hr 07/26/16 07/26/16 03:16 03:16 WBC 10.2 RBC 4.55 Hgb 13.0 Hct 39.4 MCV 86.6 L MCH 29 MCHC 33.0 RDW 14.2 Plt Count 283 MPV 10.1 Neut % (Auto) 70.6 Lymph % (Auto) 15.1 L [place] % (Auto) 7.5 Eos % (Auto) 5.4 Baso % (Auto) 0.8 Neut # (Auto) 7.2 Lymph # (Auto) 1.6 [place] # (Auto) 0.8 Eos # (Auto) 0.6 Baso # (Auto) 0.1 Immature Gran % 0.6 Nucleated RBC % 0.0 Immature Gran # 0.06 Nucleated RBCs # 0.00 Sodium 140 Potassium 4.3 Chloride 105 Carbon Dioxide 24 Anion Gap 15.3 H BUN 18 Creatinine 1.10 H GFR Calculation 44 BUN/Creatinine Ratio 16.00 Glucose 98 Calculated Osmolality 280.4 Calcium 9.0 Magnesium 2.0 Specialty Discharge - Follow Up or Referrals
[2016-07-27 06:03] LABS: Basophils # 0.1 10*3/uL (0.0-0.2); Basophils % 0.6 % (0.0-0.8); Eosinophils # 0.5 10*3/uL (0.0-0.87); Eosinophils % 4.9 % (0.00-10.9); Hematocrit 40.7 VOL% (35.7-47.0); Hemoglobin 13.5 GM/DL (12.0-16.0); Immature Granulocytes % 0.7 %; Immature Granulocytes Absolute 0.08 #; Lymphocytes # 2.1 10*3/uL (1.4-4.0); Lymphocytes % 19.4 % (21.3-54.2); Mean Corpuscular HGB Conc 33.2 GM/DL (32-36); Mean Corpuscular Hemoglobin 29 PG (27-34); Mean Corpuscular Volume 87.2 FL (87-102); Mean Platelet Volume 9.9 FL (9.6-12.0); Monocytes # 0.8 10*3/uL (0.11-0.8); Monocytes % 7.5 % (1.7-12.7); Neutrophils # 7.3 10*3/uL (1.4-7.4); Neutrophils % 66.9 % (38.7-73.9); Platelet Count 258 T/CUMM (130-400); Red Blood Count 4.67 MC/CUMM (3.8-5.5); Red Cell Distribution Width 14.1 % (9.3-17.3); White Blood Count 10.9 T/CUMM (4-12)
[2016-07-27 06:35] LABS: Calcium 8.8 MG/DL (8.5-10.1); Osmolality,Calculated 281.5 MOS/KG (273-304); Potassium 4.5 MMOL/L (3.5-5.1)
[2016-07-27] MEDS: ENOXAPARIN 40 MG/0.4 ML SYRINGE SUBCUT SCH (08:55)
[2016-07-27] MEDS: CETIRIZINE 5 MG TABLET PO SCH (08:55)
[2016-07-27] MEDS: ASPIRIN EC 81 MG TABLET PO SCH (08:55)
[2016-07-27] MEDS: POTASSIUM CHLORIDE 20 MEQ TABLET PO SCH (08:55)
[2016-07-27] MEDS: LEVOTHYROXINE 88 MCG TABLET PO SCH (08:55)
[2016-07-27] MEDS: TICAGRELOR 90 MG TABLET PO SCH ×2 (08:56→20:40)
[2016-07-27] MEDS: CARVEDILOL 6.25 MG TABLET PO SCH ×2 (08:56→20:40)
[2016-07-27] MEDS: FLUTICASONE/SALMETEROL 500-50 DISKUS 14 DOSE INH SCH ×2 (08:56→20:40)
[2016-07-27] MEDS ORDERED: MAGNESIUM SULF RIDER 2 GM in PREMIX 1 EACH IV PRN (12:37)
[2016-07-27] MEDS ORDERED: POTASSIUM CHLORIDE RIDER 10 MEQ in PREMIX 1 EACH IV PRN (12:37)
--- NOTE | 2016-07-27 12:37 | Cardiology Progress Note ---
Brenda Metzger April RN, am scribing for, and in the presence of, Luci Ceja MD 12:37. Assessment and Plan (1) AMI inferior wall Status: Acute Current Visit: Yes (2) Bradycardia Status: Acute Current Visit: Yes (3) Hypotension Status: Resolved Current Visit: Yes (4) Ventricular tachycardia Status: Resolved Current Visit: Yes (5) Coronary artery disease Status: Chronic Current Visit: Yes (6) Hypertension Status: Chronic Current Visit: Yes Cardiology - PN: Subj Interval history: NURSERY LABORER: DR. CEJA SUMMARY: Ms. Oden, 81WF, arrived to the Emergency Department July 23, 2016 with acute inferior STEMI. Left heart catheterization revealed severe mid LAD stenosis and 100% occlusion of the right coronary artery, for which she underwent PCI of the right coronary artery (see cardiac catheterization report for additional information). Intraoperatively, she experienced ventricular arrhythmias with ventricular tachycardia requiring DCCV. Thereafter, she had bradycardia arrhythmias which she also had pre-intervention. This responded to atropine. She developed significant nausea and vomiting making it difficult to proceed with treatment of the LAD. She will undergo staged procedure of the LAD prior to discharge. July 27, 2016: Ms. Oden is seen resting in bed in no acute distress. She denies any chest pain, shortness of breath, palpitations, or dizziness. Vital signs been stable, blood pressure this morning 146/78. Labs are unremarkable. We will plan on taking patient to the [facility] in a.m. for staged PCI of the LAD. ASSESSMENT/PLAN: 1. ACUTE, INFERIOR STEMI - now status post emergent revascularization. She will be treated with dual antiplatelet therapy, statin. Carvedilol 6.25 twice daily has been added. 2. HYPERTENSION -we will reintroduce her medications as her hemodynamics permit. 3. VENTRICULAR TACHYCARDIA - this appeared to be a reperfusion arrhythmia and resolved after cardioversion. 4. CORONARY ARTERY DISEASE - she also has severe mid LAD disease, she is scheduled for heart cath in a.m. with stenting of LAD. 5. CINTHIA ARRYTHMIAS - this was prior to revascularization. We will observe her rhythm at this point and manage it expectantly. 6. DYSLIPIDEMIA - starting lipid lowering agent 7. ADVANCED AGE - continue current plan of care. Exam (Progress Note) - Constitutional Vitals: Period Temp Pulse Resp BP Sys/Méndez Pulse Ox Last 24 Hr 96.6 F-98.7 F 62-85 18-20 109-146/59-78 95-97 Exam: General appearance: normal weight, no acute distress - Head Head exam: Present: normal inspection, normocephalic, atraumatic. Absent: hematoma, laceration - Eye Eye exam: Present: EOMI. Absent: conjunctival injection, nystagmus, periorbital swelling, scleral icterus, laceration to eyelids Pupils: Present: PERRL. Absent: constricted, dilated, fixed, irregular, unequal - ENT ENT exam: Present: normal exam, normal external ear exam - Neck Neck exam: Present: normal inspection. Absent: lymphadenopathy, meningismus, tenderness, thyromegaly - Respiratory Respiratory exam: Present: clear to auscultation bilaterally. Absent: accessory muscle use, chest wall tenderness - Cardiovascular Cardiovascular exam: Present: regular rate and rhythm. Absent: carotid bruit, gallop, JVD, rubs - GI/Abdominal GI/Abdominal exam: Present: normal bowel sounds, soft. Absent: distended, firm , guarding, hernia, mass, tenderness, rebound. - Extremities Exam Extremities exam: Present: normal inspection, normal capillary refill. Absent: calf tenderness, edema - Back Exam Back exam: Present: normal inspection. Absent: muscle spasm, vertebral tenderness - Neurological Exam Neurological exam: Present: alert, oriented X3, grossly intact without resting or intention tremor - Psychiatric Psychiatric exam: Present: normal affect, normal mood - Skin Skin exam: Present: normal color, warm, dry, intact. Absent: cyanosis, diaphoretic, rash, urticaria right groin is without hematoma or bruit, right femoral and posterior tibialis pulses are 2+. Result/EKG - Labs CBC & BMP: 07/27/16 05:50 07/27/16 05:50 Lab Results: I have reviewed the past 24 hour labs Labs: Laboratory Results - last 24 hr 07/27/16 07/27/16 05:50 05:50 WBC 10.9 RBC 4.67 Hgb 13.5 Hct 40.7 MCV 87.2 MCH 29 MCHC 33.2 RDW 14.1 Plt Count 258 MPV 9.9 Neut % (Auto) 66.9 Lymph % (Auto) 19.[address] [place] % (Auto) 7.5 Eos % (Auto) 4.9 Baso % (Auto) 0.6 Neut # (Auto) 7.3 Lymph # (Auto) 2.1 [place] # (Auto) 0.8 Eos # (Auto) 0.5 Baso # (Auto) 0.1 Immature Gran % 0.7 Nucleated RBC % 0.0 Immature Gran # 0.08 Nucleated RBCs # 0.00 Sodium 139 Potassium 4.5 Chloride 106 Carbon Dioxide 25 Anion Gap 12.5 BUN 26 H Creatinine 1.20 H GFR Calculation 40 BUN/Creatinine Ratio 21.00 H Glucose 96 Calculated Osmolality 281.5 Calcium 8.8 - EKG EKG results: interpreted by me EKG shows: sinus rhythm Specialty Discharge - Follow Up or Referrals Marcial Metzger Jennifer, MD, personally performed the services described in this documentation, ascribed by Zonia Gutierrez RN in my presence, and it is both accurate and complete [id number] .
--- NOTE | 2016-07-27 12:39 | History and Physical Update ---
Sedation H&P Update - History and Physical H&P was reviewed, the patient examined and there: are no changes in the patients condition since last H&P was completed. - Physical Exam Mental Status: alert and oriented Heart: regular rate and rhythm Lung: clear to auscultation Abdomen: within normal limits Vitals: within normal limits - Sedation Plan for Sedation: moderate Patient Consent: Procedure disscussed with patient and patinet has consented., Risks and benefits were discussed with patient,including infection,, bleeding, injury to surrounding structures, seizure, temporary nerve, Patient understands and accepts potential risks/benefits and agrees to, proceed. ASA Class: IV Airway Assessment: Class I: Soft palate, uvula, fauces, pillars visible
[2016-07-27] MEDS: SODIUM CHLORIDE 0.45% 1,000 ML IV SCH (14:08)
[2016-07-27] MEDS: ATORVASTATIN 40 MG TABLET PO SCH (20:39)
[2016-07-27] MEDS: ZALEPLON 5 MG CAPSULE PO PRN (20:40)
[2016-07-28] MEDS: SODIUM CHLORIDE 0.45% 1,000 ML IV SCH ×2 (03:57→18:15)
[2016-07-28 05:35] LABS: Basophils # 0.1 10*3/uL (0.0-0.2); Basophils % 0.7 % (0.0-0.8); Eosinophils # 0.6 10*3/uL (0.0-0.87); Eosinophils % 5.6 % (0.00-10.9); Hematocrit 38.7 VOL% (35.7-47.0); Immature Granulocytes % 0.7 %; Immature Granulocytes Absolute 0.07 #; Lymphocytes # 1.6 10*3/uL (1.4-4.0); Lymphocytes % 15.2 % (21.3-54.2); Mean Corpuscular HGB Conc 33.6 GM/DL (32-36); Mean Corpuscular Hemoglobin 29 PG (27-34); Monocytes # 0.7 10*3/uL (0.11-0.8); Neutrophils # 7.4 10*3/uL (1.4-7.4); Neutrophils % 70.8 % (38.7-73.9); Platelet Count 255 T/CUMM (130-400); Red Blood Count 4.45 MC/CUMM (3.8-5.5); Red Cell Distribution Width 14.2 % (9.3-17.3); White Blood Count 10.5 T/CUMM (4-12)
[2016-07-28 05:58] LABS: Calcium 8.7 MG/DL (8.5-10.1); Osmolality,Calculated 280.7 MOS/KG (273-304); Potassium 4.3 MMOL/L (3.5-5.1)
[2016-07-28] MEDS ORDERED: DIAZEPAM 5 MG TABLET ONE (08:20)
[2016-07-28] MEDS ORDERED: diphenhydrAMINE CAP 25 MG CAPSULE ONE (08:21)
[2016-07-28] MEDS: TICAGRELOR 90 MG TABLET PO SCH ×2 (08:26→20:37)
[2016-07-28] MEDS: ASPIRIN EC 81 MG TABLET PO SCH (08:26)
[2016-07-28] MEDS: FLUTICASONE/SALMETEROL 500-50 DISKUS 14 DOSE INH SCH ×2 (08:27→20:38)
[2016-07-28] MEDS: POTASSIUM CHLORIDE 20 MEQ TABLET PO SCH (08:27)
[2016-07-28] MEDS: ENOXAPARIN 40 MG/0.4 ML SYRINGE SUBCUT SCH (08:27)
[2016-07-28] MEDS: CARVEDILOL 6.25 MG TABLET PO SCH ×2 (08:27→20:38)
[2016-07-28] MEDS: CETIRIZINE 5 MG TABLET PO SCH (08:28)
[2016-07-28] MEDS: LEVOTHYROXINE 88 MCG TABLET PO SCH (08:28)
[2016-07-28] MEDS ORDERED: diphenhydrAMINE CAP 25 MG CAPSULE PO SCH ×2 (08:30→10:00)
[2016-07-28] MEDS ORDERED: DIAZEPAM 5 MG TABLET PO SCH ×2 (08:31→10:00)
[2016-07-28] MEDS ORDERED: HEPARIN/NACL 0.9% 2 UNITS/ML 1,000 ML IV ONE (12:04)
[2016-07-28] MEDS ORDERED: LIDOCAINE 1% 20 ML VIAL ONE (12:04)
[2016-07-28] MEDS ORDERED: fentaNYL 100 MCG/2 ML VIAL ONE (12:35)
[2016-07-28] MEDS ORDERED: BIVALIRUDIN 250 MG VIAL IV ONE (12:35)
[2016-07-28] MEDS ORDERED: MIDAZOLAM 2 MG/2 ML VIAL ONE (12:35)
--- NOTE | 2016-07-28 13:18 | Cardiology Operative Report ---
Date of Procedure:: 07/28/16 Pre-op diagnosis: Severe mid LAD stenosis Post-op diagnosis: other (Failed attempted PCI of mid LAD with inability to wire the lesion) Procedure: 1. Selective left coronary angiography. 2. Attempt at percutaneous intervention of the mid LAD. 3. Left iliac angiography to rule out vascular complications. Impression: 1. Failed attempted PCI of the mid LAD with inability to wire the lesion due to tortuosity of the vessel and adjacent takeoff of the second diagonal artery. 2. The mid LAD has 95% stenosis with a sequential 70% lesion. 3. Angiographically normal left iliac artery without evidence of vascular complications. 5. Unsuccessful PCI of the mid LAD as described above. Plan: 1. Surgical consultation for future bypass of the mid LAD after she has completed dual antiplatelet therapy for her recently placed right coronary bare- metal stent. Equipment: Guiding 6 Urdu 3.5 catheter, 300 cm pro-water, 2 x 8 mm over the wire balloon Hemodynamics: Aortic pressure 95/46 mmHg Sedation: Versed 2 mg, fentanyl 50 mcg Procedure: After informed consent was obtained the patient was prepped and draped in sterile fashion. The left groin was infiltrated with 1% lidocaine and the left femoral artery was accessed via modified Seldinger technique using a micropuncture needle and a 6 Urdu femoral arterial sheath was placed. The patient was anticoagulated with Angiomax. After appropriate anticoagulation was confirmed with an ACT measurement, a guiding 6 Urdu EBU 3.5 catheter was advanced to the left main artery. A pro-water 300 cm wire was used to traverse the left anterior descending artery. It was preferentially entering the second diagonal artery, which originates at the site of stenosis. Despite multiple attempts at manipulating the wire, I was unable to cross the lesion. Further attempts were aborted due to the complexity of the lesion. No evidence of vascular complications developed. Pre-and postoperatively there is 95% stenosis followed by 70% stenosis with RANJIT-3 flow. Contrast use: Visipaque 59 cc Fluoro time: 9.7 minutes Complications: none Specimens removed: none Devices implanted: None Anesthesia: moderate conscious sedation Surgeon / Physician: Luci Ceja Estimated blood loss: minimal Specimens: none sent Condition: critical Disposition: ICU/CCU
[2016-07-28] MEDS: ISOSORBIDE MONONITRATE 30 MG TABLET PO SCH (16:01)
[2016-07-28] MEDS: ONDANSETRON 4 MG/2 ML VIAL IV PRN (18:14)
[2016-07-28] MEDS: ATORVASTATIN 40 MG TABLET PO SCH (20:37)
[2016-07-29 05:16] LABS: Basophils # 0.1 10*3/uL (0.0-0.2); Basophils % 0.5 % (0.0-0.8); Eosinophils # 0.4 10*3/uL (0.0-0.87); Eosinophils % 3.6 % (0.00-10.9); Hematocrit 33.6 VOL% (35.7-47.0); Hemoglobin 11.1 GM/DL (12.0-16.0); Immature Granulocytes % 0.6 %; Immature Granulocytes Absolute 0.07 #; Lymphocytes # 1.3 10*3/uL (1.4-4.0); Lymphocytes % 12.4 % (21.3-54.2); Mean Corpuscular Hemoglobin 29 PG (27-34); Mean Corpuscular Volume 86.8 FL (87-102); Monocytes # 0.7 10*3/uL (0.11-0.8); Neutrophils # 8.4 10*3/uL (1.4-7.4); Neutrophils % 76.9 % (38.7-73.9); Platelet Count 238 T/CUMM (130-400); Red Blood Count 3.87 MC/CUMM (3.8-5.5); Red Cell Distribution Width 14.1 % (9.3-17.3); White Blood Count 10.9 T/CUMM (4-12)
[2016-07-29 05:52] LABS: Calcium 8.7 MG/DL (8.5-10.1); Osmolality,Calculated 277.5 MOS/KG (273-304)
[2016-07-29] MEDS: SODIUM CHLORIDE 0.45% 1,000 ML IV SCH (06:29)
--- NOTE | 2016-07-29 09:04 | Cardiothoracic Progress Note ---
Cardiothoracic Subjective Interval history: Patient is an 81-year-old lady who presented several days ago with an acute myocardial infarction and was taken to the cardiac Data Analytics Analyst emergently where a large right coronary artery was opened successfully by Dr. Ceja. Also noted at the time of catheterization was significant anterior descending coronary artery disease which was felt to be best approachable surgically. Patient has recovered nicely from her acute episode and is ready to be discharged and I was asked to see her for possible surgical revascularization of her LAD. She is quite opposed to the consideration of any surgery and it may very well be that she will opt for either no further therapy or perhaps high risk PTCA. Since she is going to require Plavix for at least 6 weeks before it could be stopped, she has the opportunity to reflect and she will discuss this with us further. I have not made a surgical clinic appointment with her because of her fairly adamant opinion to not undergo surgery. She is going to see Dr. Ceja as an outpatient and if she has a change of mind about surgery I would be happy to see her at any time. Exam (Progress Note) - Constitutional Vitals: Period Temp Pulse Resp BP Sys/Méndez Pulse Ox Last 24 Hr 97.7 F-98.2 F 61-77 16-20 101-131/54-71 94-99 Result/EKG - Labs CBC & BMP: 07/29/16 04:57 07/29/16 04:57 Labs: Laboratory Results - last 24 hr 07/29/16 07/29/16 04:57 04:57 WBC 10.9 RBC 3.87 Hgb 11.1 L Hct 33.6 L MCV 86.8 L MCH 29 MCHC 33.0 RDW 14.1 Plt Count 238 MPV 10.0 Neut % (Auto) 76.9 H Lymph % (Auto) 12.4 L [place] % (Auto) 6.0 Eos % (Auto) 3.6 Baso % (Auto) 0.5 Neut # (Auto) 8.4 H Lymph # (Auto) 1.3 L [place] # (Auto) 0.7 Eos # (Auto) 0.4 Baso # (Auto) 0.1 Immature Gran % 0.6 Nucleated RBC % 0.0 Immature Gran # 0.07 Nucleated RBCs # 0.00 Sodium 139 Potassium 4.0 Chloride 108 H Carbon Dioxide 22 Anion Gap 13.0 BUN 18 D Creatinine 0.90 GFR Calculation 56 BUN/Creatinine Ratio 20.00 Glucose 88 Calculated Osmolality 277.5 Calcium 8.7 Specialty Discharge - Follow Up or Referrals
[2016-07-29] MEDS: CARVEDILOL 6.25 MG TABLET PO SCH (09:23)
[2016-07-29] MEDS: CETIRIZINE 5 MG TABLET PO SCH (09:23)
[2016-07-29] MEDS: LEVOTHYROXINE 88 MCG TABLET PO SCH (09:23)
[2016-07-29] MEDS: TICAGRELOR 90 MG TABLET PO SCH (09:23)
[2016-07-29] MEDS: ASPIRIN EC 81 MG TABLET PO SCH (09:23)
[2016-07-29] MEDS: POTASSIUM CHLORIDE 20 MEQ TABLET PO SCH (09:23)
[2016-07-29] MEDS: ISOSORBIDE MONONITRATE 30 MG TABLET PO SCH (09:23)
[2016-07-29] MEDS: ENOXAPARIN 40 MG/0.4 ML SYRINGE SUBCUT SCH (09:24)
[2016-07-29] MEDS: FLUTICASONE/SALMETEROL 500-50 DISKUS 14 DOSE INH SCH (09:25)
--- NOTE | 2016-07-29 11:28 | Discharge Summary ---
<Cristy Adams E - Last Filed: 07/29/16 14:17> Hospital Course - Hospital Course Hospital Course: Agent Telegrapher: new to Dr. Ceja Ms. Oden is an 81 year old female without a prior cardiac history who presented to the hospital on 07/23/16 via EMS with complaints of acute onset left-sided shoulder pain with extreme nausea, vomiting, and diarrhea. She was found to have an acute ST elevation myocardial infarction and was brought directly to the record label intern for emergent left heart catheterization. She underwent percutaneous coronary intervention of the right coronary artery. Intraoperatively she experienced ventricular arrhythmias with ventricular tachycardia requiring direct-current cardioversion. Thereafter she had some bradycardia arrhythmias (which she also had pre- intervention) which responded to atropine. She was also recognized as having mid LAD disease that was severe , but had developed significant nausea and vomiting on the table making it difficult to proceed with treatment. She was monitored for several days post infarction and it was advised she undergo staged PCI of the LAD prior to discharge. On 07/18/16, she underwent failed attempted PCI of the mid LAD with inability to wire the lesion due to tortuosity of the vessel and adjacent takeoff of the second diagonal artery. Dr. Shaw with cardiothoracic surgery was consulted to see her for possible bypass of the mid LAD after she has completed dual antiplatelet therapy for her recently placed right coronary bare-metal stent. Dr. Shaw saw her in consultation and Ms. Oden is quite opposed to to the consideration of any surgery and may opt for either no further therapy or perhaps high risk PTCA. Since she is going to require Plavix for at least 6 weeks before it could be stopped, she has the opportunity to reflect and she will discuss this with us further. She will not be made a follow up appointment with Dr. Shaw, but will follow up with Dr. Ceja for future discussions regarding her CAD treatment. She had post cath bradycardia and hypotension and was unable to tolerate beta ege, LAURA/ARB for several days. She was continued on DAPT and a lipid- lowering agent. Eventually, her heart rate allowed for introduction of a beta gee. Her echocardiogram revealed an EF of 50-55% and grade I/IV diastolic dysfunction. She has been started on a nitrate for further medical management. Her labs and vital signs are stable. Bilateral groins are without bleeding, hematoma, or bruit. There is mild ecchomsis at the left groin cath site. Bilateral femoral pulses are 3+ with bilateral peripheral pulses present and palpable. At this time, she has met criteria for discharge and is anxious to go home. She was hypokalemic upon admission. We will have her continue PO potassium upon discharge and recheck labs upon follow up with Dr. Ceja. I reviewed the films yesterday with Dr. Ceja I saw and examined today with Nilton Bryan. The patient has not had any more symptoms no more ventricular ectopy on telemetry. She declined surgical intervention for her LAD disease. The patient will follow with Dr. Ceja and we will initiate medical therapy. - Time spent with patient Time with patient DS: Less than 30 minutes Diagnosis - Discharge Diagnosis (1) AMI inferior wall Status: Resolved (2) Bradycardia Status: Resolved (3) Advanced age Status: Chronic (4) Coronary artery disease Status: Chronic (5) Dyslipidemia Status: Chronic (6) Hypertension Status: Chronic (7) Hypotension Status: Resolved (8) STEMI (ST elevation myocardial infarction) Status: Resolved (9) Ventricular tachycardia Status: Resolved Specialty Discharge - Follow Up or Referrals Follow up with: Luci Ceja MD [Physician] - 1 Week (Follow up with Dr. Ceja in 1 week with CBC, BMP w/ Mg, and EKG. ) Discharge Plan - Discharge Data Disposition: Disch To Home/Self Care Condition at Discharge: Stable Discharge Diet: heart healthy Activity: no lifting (over 5 pounds x 5 days. ), other (post cath expectations) Hygiene: may shower (Do not submurge cath site beneath water x1 week.) Driving: not for (2 days following cath.) Contact your physician if you experience:: fever over 101, Difficulty voiding, Redness or swelling, Nausea/Vomiting, Shortness of breath, Bleeding, pain uncontrolled by pain medications - Discharge Medications New Aspirin EC Tab 81 mg PO DAILY #30 tablet Atorvastatin [Lipitor] 40 mg PO BEDTIME #30 tablet Carvedilol [Coreg] 6.25 mg PO BID #60 tablet Isosorbide Mononitrate [Imdur] 30 mg PO DAILY #30 tablet Nitroglycerin Sl Tab [Nitrostat] 0.4 mg SL Q5M PRN #1 bottle PRN Reason: Chest Pain Potassium Chloride Cap/Tab [K Dur] 20 meq PO DAILY #30 tablet Cetirizine Tab [ZyrTEC Tab] 5 mg PO DAILY #30 tablet Ticagrelor [Brilinta] 90 mg PO BID #60 tablet Continue Albuterol Sulfate [Ventolin HFA] 2 puffs INH Q4HR PRN PRN Reason: Congestion Fluticasone/Salmeterol 500-50 [Advair 500-50] 1 puff INH BID Levothyroxine Tab [Synthroid Tab] 88 mcg PO DAILY Discontinued Lisinopril 5 mg PO DAILY hydroCHLOROthiazide [Hydrochlorothiazide] 25 mg PO DAILY - Follow Up or Referral Follow Up: Luci Ceja MD [Physician] - 1 Week (Follow up with Dr. Ceja in 1 week with CBC, BMP w/ Mg, and EKG. ) - Forms/Instructions Instructions: Myocardial Infarction (GEN), Left Heart Catheterization (DC), Heart Healthy Diet (GEN), Coronary Intravascular Stent Placement (DC) Exam - Constitutional Vitals: Period Temp Pulse Resp BP Sys/Méndez Pulse Ox Last 24 Hr 97.7 F-98.5 F 61-79 16-20 101-131/54-71 94-99 Exam: General appearance: normal weight, no acute distress - Head Head exam: Present: normal inspection, normocephalic, atraumatic. Absent: hematoma, laceration - Eye Eye exam: Present: EOMI. Absent: conjunctival injection, nystagmus, periorbital swelling, scleral icterus, laceration to eyelids Pupils: Present: PERRL. Absent: constricted, dilated, fixed, irregular, unequal - ENT ENT exam: Present: normal exam, normal external ear exam - Neck Neck exam: Present: normal inspection. Absent: lymphadenopathy, meningismus, tenderness, thyromegaly - Respiratory Respiratory exam: Present: clear to auscultation bilaterally. Absent: accessory muscle use, chest wall tenderness - Cardiovascular Cardiovascular exam: Present: regular rate and rhythm. Absent: carotid bruit, gallop, JVD, rubs - GI/Abdominal GI/Abdominal exam: Present: normal bowel sounds, soft. Absent: distended, firm , guarding, hernia, mass, tenderness, rebound. - Extremities Exam Extremities exam: Present: normal inspection, normal capillary refill. Absent: calf tenderness, edema - Back Exam Back exam: Present: normal inspection. Absent: muscle spasm, vertebral tenderness - Neurological Exam Neurological exam: Present: alert, oriented X3, grossly intact without resting or intention tremor - Psychiatric Psychiatric exam: Present: normal affect, normal mood - Skin Skin exam: Present: normal color, warm, dry, intact. Absent: cyanosis, diaphoretic, rash, urticaria right groin is without hematoma or bruit, right femoral and posterior tibialis pulses are 2+. Discharge Results Procedures and tests throughout hospitalization: Pending Orders 07/23/16 10:33 CL heart Stat 07/28/16 05:00 heart Routine Left heart catheterization with left ventriculogram. 07/23/16 Findings: 1. The left main artery is angiographically normal. 2. The left anterior descending artery extends to the apex and wraps around. There is 90% stenosis in the mid segment involving the ostium of the second diagonal artery with some prestenotic dilatation of the vessel. There is a sequential 70% lesion in the mid segment. Initially there seemed to be RANJIT II flow which postoperatively appeared to be RANJIT-3 flow. 3. There is an intermediate ramus branch that is moderate in caliber, tortuous , and free of significant disease. 4. The circumflex artery is a nondominant vessel that gives rise to 2 branching marginal arteries. There are luminal irregularities throughout the system with up to 30% stenosis, but no significant stenosis. 5. The right coronary artery is 100% occluded in the distal segment. After flow was restored, the right posterior lateral branch was noted to have sequential 80% stenosis (vessel less than or equal to 2 mm). The right coronary artery is dominant. 6. Ejection fraction is 55 % with hypokinesis of the basal to mid inferior wall. 7. Mild mitral regurgitation. 8. No significant aortic stenosis. 9. The right iliac artery is angiographically normal without evidence of vascular complications. PCI: The patient was anticoagulated with Angiomax. After appropriate anticoagulation was confirmed with an ACT measurement, a guiding 6 Setswana JR4 catheter was advanced to the right coronary artery. A pro-water 300 cm wire was used to traverse the right coronary artery. A apex over the wire 2 x 12 mm balloon was advanced to the site of stenosis and angioplasty was performed at 14 ashish. Thereafter, a rebel 4 x 12 mm stent was advanced to the site of angioplasty, and successfully deployed at 11 ashish. Follow-up angiography revealed sequential stenosis in the posterior lateral branch there were each approximately 80%. The vessel itself was less than or equal to 2 mm in caliber. The apex over the wire 2 x 12 mm balloon was advanced to the site of the stenosis and angioplasty was performed in the more distal lesion at 14 ashish, and 12 ashish in the more proximal lesion. Satisfactory angiographic result was obtained at all treated sites with appropriate step-up proximally and distally in the stented segment, and no evidence of residual vascular complications. Preoperatively there is 100% stenosis with RANJIT 0 flow in the distal right coronary artery. Postoperatively there is 0% residual stenosis with RANJIT-3 flow. 07/28/16 Procedure: 1. Selective left coronary angiography. 2. Attempt at percutaneous intervention of the mid LAD. 3. Left iliac angiography to rule out vascular complications. Impression: 1. Failed attempted PCI of the mid LAD with inability to wire the lesion due to tortuosity of the vessel and adjacent takeoff of the second diagonal artery. 2. The mid LAD has 95% stenosis with a sequential 70% lesion. 3. Angiographically normal left iliac artery without evidence of vascular complications. 5. Unsuccessful PCI of the mid LAD as described above. Plan: 1. Surgical consultation for future bypass of the mid LAD after she has completed dual antiplatelet therapy for her recently placed right coronary bare- metal stent. Echocardiogram 07/23/16: Normal LV systolic function, ejection fraction 50-55%. Regional wall motion cannot be well assessed. Grade 1/4 diastolic dysfunction. Mild to moderate concentric left ventricular hypertrophy. Mild mitral regurgitation. Labs on day of discharge: Labs from last 24 hours 07/29/16 07/29/16 04:57 04:57 WBC 10.9 RBC 3.87 Hgb 11.1 L Hct 33.6 L MCV 86.8 L MCH 29 MCHC 33.0 RDW 14.1 Plt Count 238 MPV 10.0 Neut % (Auto) 76.9 H Lymph % (Auto) 12.4 L [place] % (Auto) 6.0 Eos % (Auto) 3.6 Baso % (Auto) 0.5 Neut # (Auto) 8.4 H Lymph # (Auto) 1.3 L [place] # (Auto) 0.7 Eos # (Auto) 0.4 Baso # (Auto) 0.1 Immature Gran % 0.6 Nucleated RBC % 0.0 Immature Gran # 0.07 Nucleated RBCs # 0.00 Sodium 139 Potassium 4.0 Chloride 108 H Carbon Dioxide 22 Anion Gap 13.0 BUN 18 D Creatinine 0.90 GFR Calculation 56 BUN/Creatinine Ratio 20.00 Glucose 88 Calculated Osmolality 277.5 Calcium 8.7 DS: Provider Date of admission: 07/23/16 13:53 Primary care physician: . No PCP Attending physician on admission: Luci Ceja, Consults: 07/23/16 11:16 Consult to Cardiac Rehabilitation [CONS] Routine Reason for Cardiac Rehabilitation: Home Exercise Program/Ro[place] 07/23/16 14:12 Consult to Pastoral Services [CONS] Routine Comment: Pastoral Screen: Request Client Resolution Specialist Visit Pastoral Screen Source of Request: Patient 07/28/16 13:24 Consult to Physician [CONS] Routine Comment: severe LAD stenosis, failed attempt at PCI Consulting Provider: Haroon Shaw Discharging clinician: KENISHA Schmidt Expected date of discharge: 07/29/16 <Brooklyn Pacheco - Last Filed: 07/29/16 14:42> Diagnosis - Discharge Diagnosis (1) AMI inferior wall Status: Acute (2) Coronary artery disease Status: Chronic (3) Hypertension Status: Chronic (4) Ventricular tachycardia Status: Resolved (5) Bradycardia Status: Resolved (6) Hypotension Status: Resolved (7) Dyslipidemia Status: Chronic (8) Advanced age Status: Chronic Discharge Plan - Discharge Data Condition at Discharge: Stable Discharge Diet: heart healthy Activity: no lifting, other Hygiene: may shower Driving: not for Contact your physician if you experience:: fever over 101, Difficulty voiding, Redness or swelling, Nausea/Vomiting, Shortness of breath, Bleeding, pain uncontrolled by pain medications Exam - Constitutional Exam: Cath site looks good exam is stable. Vital signs are stable. Discharge Results - Imaging and Cardiology Cardiology Procedure: image reviewed by me, report reviewed by me
[2016-07-29 11:56] VITALS: BP 120/68
== END 2016-07-29 16:00 | disposition home or self-care (01) | DRG 249 ==
LOC: N.CL 10:34 → N.CC 13:53 → N.TELEN 07-24 22:12
PROVIDERS: ADMIT Internal Medicine Cardiovascular Disease; ATTEND Internal Medicine Cardiovascular Disease
PROC: CLCCHCL (ICD-10-PCS; 2016-07-23 10:45)